=== PATIENT | male | born 1960 | race Caucasian/White ===

== ENCOUNTER → 2019-05-30 | Outpatient (CLI) | payer OTHER ==
[~2019-05-30] MED LIST: LISI10TA7 PO; MULT-950 PO; OMEG300C3 PO; SIMV40TA59 PO; VITA150T PO; [UNRECOGNIZED DRUG - CODE] PO
== END | disposition home or self-care (01) ==
LOC: RAH 10:59
PROVIDERS: ATTEND Family Medicine
DX: Z13.6 Encounter for screening for cardiovascular disorders (principal)
CPT/HCPCS: 75571

== ENCOUNTER 2024-12-19 12:51 | Emergency (ER) | payer OTHER, MEDICARE ==
[~2024-12-19] VITALS: Ht 167.6 cm; Wt 90.7 kg
[~2024-12-19 12:51] MED LIST changes: +CIPR-278 PO; +LISI10TA24 PO; -LISI10TA7 PO; +METR-172 PO
[2024-12-19 13:04] VITALS: BP 158/72; PULSE 73; RESP 16; TEMP 97.7; O2SAT 98
[2024-12-19] MEDS: FLUORESCEIN SODIUM 1 STRIP STRIP OP ONE (13:08)
[2024-12-19] MEDS: TETRACAINE HCL 0.5% 4 ML OPHTH SOLN OP ONE (13:08)
[2024-12-19] MEDS ORDERED: POLYOS OP (13:30)
[2024-12-19] MEDS ORDERED: CYCL2DRO OP (13:30)
--- NOTE | 2024-12-19 13:31 | ERN ---
General Chief Complaint: Eye Problems Stated Complaint: FOREIGN BODY IN RIGHT EYE Time Seen by MD: 12:59 History of Present Illness Initial Comments 64-year-old male, does not wear contact lenses, who presents for possible foreign body of the right eye. He was working and something got into his right eye. He feels some irritation. No vision changes. [facility]. Allergies: Coded Allergies: No Known Drug Allergies (Unverified Allergy, Unknown, 09/12/14) Home Meds Active Scripts Cyclopentolate HCl (Cyclopentolate HCl) 1 % Drops, 1 DROP OP TID for eye pain, #2 ML 0 Refills Prov:OSCAR ESTEVEZ DO 12/19/24 Polymyxin B Sulfate/Tmp (Polytrim Ophth Soln) 10,000 Unit-1 Mg/Ml Opsol, 1 DROP OP QID for 7 Days, #10 ML 0 Refills Prov:OSCAR ESTEVEZ DO 12/19/24 Metronidazole (Metronidazole) 500 Mg Tablet, 500 MG PO TID for 5 Days, #15 TAB Prov:EDOUARD PETTY MD 12/21/22 Ciprofloxacin HCl (Cipro) 500 Mg Tablet, 1 TAB PO BID for 5 Days, #10 TAB 0 Refills Prov:EDOUARD PETTY MD 12/21/22 Reported Medications Simvastatin (ZOCOR) 40 Mg Tablet, 40 MG PO DAILY, TAB 09/11/14 Lisinopril (Lisinopril) 10 Mg Tablet, 10 MG PO DAILY, TAB 09/11/14 [place]-3 Fatty Acids (Fish Oil) 300 Mg Capsule, 300 MG PO DAILY, CAP 09/11/14 Ascorbic Acid (Vitamin C) 500 Mg Tablet.er, 500 MG PO DAILY, TAB 09/11/14 Multivitamin (Multi-Day Vitamins) 1 Each Tablet, 1 EACH PO DAILY, TAB 09/11/14 Vitamin B Complex & Vit C No.4 (Super B Complex) 150 Mg Tablet, 150 MG PO DAILY, TAB 09/11/14 Past Medical History Past Medical History: High Cholesterol, Hypertension Past Surgical History: None Social History Social History: ETOH, Lives with family ROS Dictation CONSTITUTIONAL: No chills, no fever, no weakness, no diaphoresis, no malaise. HEAD/FACE: No signs of trauma. EENT: Right eye irritation RESPIRATORY: No cough, no orthopnea, no SOB, no stridor, no wheezing. CARDIOVASCULAR: No chest pain, no edema, no palpitations, no syncope. GASTROINTESTINAL/ABDOMINAL: No abdominal pain, no constipation, no diarrhea, no nausea, no vomiting. GENITOURINARY: No abnormal discharge, no dysuria, no frequent urination, no hematuria. No complaints of pain in the genitals. MUSCULOSKELETAL: No back pain, no gout, no joint pain, no joint swelling, no muscle pain, no muscle stiffness, no neck pain. INTEGUMENTARY: No change in color, no change in hair/nails, no dryness, no lesion, no lumps, no rash. NEUROLOGICAL/PSYCH: No anxiety, not depressed, no emotional problem, no headache, no numbness, no pre-existing deficit, no history of seizures, no tremors, no weakness. HEMATOLOGIC/LYMPHATIC: Not anemic, no history of blood clots, no apparent bleeding, no bruising, glands not swollen. All Systems Negative, Except as Noted. Physical Exam Physical Exam Dictation VITAL SIGNS: Reviewed. GENERAL APPEARANCE: Alert, oriented x3, no acute distress. HEAD AND FACE: Non-traumatic. EYES: PERRL, pink conjunctivas, eyelid no trauma, anterior chamber clear. EARS: Pinnas intact and no signs of trauma or erythema. Right conjunctiva irritation no obvious foreign body NOSE: No discharge, no bleeding. OROPHARYNX: Mouth normal, teeth no caries, tongue pink. Pharynx clear, no e rythema. Tonsils no exudates, no abscesses noted. Mucous membrane moist. NECK: Supple, non-tender, no thyromegaly, no masses, no JVD, no bruits. BREAST: Deferred. CHEST: No tenderness, no crepitus, no paradoxical movement, no retractions. LUNGS: Clear, well-ventilated, symmetric, no rales, no wheezing, no rhonchi, no stridor, good breath sounds bilaterally. HEART: Regular rate, regular rhythm, no murmur, no gallops. VASCULAR: No peripheral edema. ABDOMEN: Soft, positive bowel sounds, nondistended, no guarding, nontender, no rebound, no masses no hepatomegaly, no splenomegaly, no Meehan's sign, no hernias. RECTAL: Deferred. GENITAL: Deferred. NEUROLOGICAL: Normal speech, gross motor function intact, gross sensory function intact. MUSCULOSKELETAL: Neck nontender, full range of motion, back nontender, full range of motion. EXTREMITIES: Nontender, full range of motion. SKIN: Color pink, dry, no turgor, no rash, no lacerations, no abrasions, no contusions. LYMPHATICS: Deferred. MDM CC: Foreign body in the right eye/irritation to the right after working Historian: Patient No comorbidities No limitations Differential diagnosis includes corneal abrasion versus laceration versus foreign body I performed an eye exam using fluorescein and tetracaine. I used the Wood's lamp with magnification. There is no obvious foreign body. There is a small area of abrasion on the corneal area in the bottom. Plan will be to discharge with Polytrim drops. Also cyclopentolate drops for pa in. We will recommend ophthalmology follow up. ED Course Orders Procedure Category Date Status Time Tetracaine Hcl PHA 12/19/24 Complete (Pontocaine 0.5% 13:00 Fluorescein Sodium PHA 12/19/24 Complete ([id number] At) 13:00 Current Medications Medications (Trade) Dose Ordered Sig/Thierno Route PRN Reason Start Time Stop Time Status Last Admin Dose Admin Fluorescein Sodium (Jvuvp-F-Hqcdd At) 1 strip ONCE ONCE OP 12/19/24 13:00 12/19/24 13:01 DC 12/19/24 13:08 Tetracaine HCl (Pontocaine 0.5% Ophth Soln) 1 OR 2 DROPS ONCE ONCE OP 12/19/24 13:00 12/19/24 13:01 DC 12/19/24 13:08 Vital Signs Date Time Temp Pulse Resp B/P (MAP) Pulse Ox O2 Delivery O2 Flow Rate FiO2 12/19/24 13:04 97.7 73 16 158/72 98 Room Air* 0 21 12/19/24 12:52 97.7 73 16 158/72 98 Room Air DX & DISP Disposition: Discharge Departure Impression: Primary Impression: Corneal abrasion, right Condition: Stable Scripts Cyclopentolate HCl (Cyclopentolate HCl) 1 % Drops 1 DROP OP TID for eye pain, #2 ML 0 Refills Prov: OSCAR ESTEVEZ DO 12/19/24 Polymyxin B Sulfate/Tmp (Polytrim Ophth Soln) 10,000 Unit-1 Mg/Ml Opsol 1 DROP OP QID for 7 Days, #10 ML 0 Refills Prov: OSCAR ESTEVEZ DO 12/19/24 Additional Instructions: You appear to have a corneal abrasion to the right eye. There are no obvious foreign bodies. I have prescribed Polytrim drops. Apply 4 times per day. If you have pain, I have prescribed cyclopentolate drops. You can use these only as needed for pain. You can also try [id number] ibuprofen or Tylenol for pain. [facility] You need a referral to an patient service coordinator as soon as possible. They will need to do further examination. Do not wear contact lenses. Return to the emergency department as needed. Referrals: RENETTA HOLCOMB MD (PCP) OSCAR ESTEVEZ DO Dec 19, 2024 13:31
== END 2024-12-19 13:55 | disposition home or self-care (01) ==
LOC: EDH 12:51
DX: S05.01XA Injury of conjunctiva and corneal abrasion without foreign body, right eye, initial encounter (principal); E78.00 Pure hypercholesterolemia, unspecified; I10 Essential (primary) hypertension; Z79.899 Other long term (current) drug therapy; X58.XXXA Exposure to other specified factors, initial encounter; Y93.89 Activity, other specified; Y92.89 Other specified places as the place of occurrence of the external cause; Y99.8 Other external cause status
CPT/HCPCS: 99283